=== PATIENT | male | born 1975 | race Caucasian/White ===

== ENCOUNTER 2017-10-03 12:08 | Emergency (ER) | payer BC ==
[2017-10-03 13:22] LABS: Bilirubin Negative (Negative); Blood, Urine Negative (Negative); Clarity Clear (Clear); Glucose, Urine (Dipstick) Negative (Negative); Leukocyte Negative (Negative); Nitrite Negative (Negative); Protein, Urine (Dipstick) Negative (Neg-Trace); Specific Gravity, Urine 1.025 (1.002-1.036); Urobilinogen 0.2 mg/dL (0.2-1.0); pH, Urine 5.5 (5.0-9.0)
--- NOTE | 2017-10-03 13:59 | ULT ---
ULTRASOUND SCROTUM TESTICLES DOPPLER DUPLEX: DATE: 10/03/2017 HISTORY: A 42-year-old male with right-sided scrotal pain. TECHNIQUE: Valenzuela-scale evaluation of intrascrotal contents. Color flow Doppler and spectral waveform analysis of the testicles. FINDINGS: Dilated, tortuous veins in the right scrotum, both superior to the testicle and inferior to the testi annelise, with significant change in flow between Valsalva and release of Valsalva. Bilateral testicles a re normal in size. There are multiple punctate calcifications within the bilateral testicular parenc hyma. No significant hydrocele. Blood flow is demonstrated in both testicles by Doppler. There is a smaller varicocele at the left groin. IMPRESSION: 1. Moderate to large right scrotal varicocele. 2. Small left varicocele. 3. 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 4. No evidence of testicular neoplasm or torsion. MIKE Castro POS: [facility]
== END 2017-10-03 14:42 | disposition home or self-care (01) ==
LOC: SCSER 12:08
DX: I86.1 Scrotal varices (principal); F17.210 Nicotine dependence, cigarettes, uncomplicated
CPT/HCPCS: 76870; 81003; 93976

== ENCOUNTER 2018-11-30 20:52 | Emergency (ER) | payer BC ==
[2018-11-30] MEDS ORDERED: HYDROcodone/Acetaminophen 5/325 mg Tablet ONE (22:10)
--- NOTE | 2018-12-01 09:33 | RAD ---
TWO VIEWS CHEST: DATE: 11/30/2018. COMPARISON: None. HISTORY: Pain. FINDINGS: Lungs are clear. Heart and mediastinal contours are unremarkable. IMPRESSION: No acute findings. POS: [facility]
== END 2018-11-30 22:14 | disposition home or self-care (01) ==
LOC: SCSER 20:52
DX: M54.6 Pain in thoracic spine (principal); F17.210 Nicotine dependence, cigarettes, uncomplicated
CPT/HCPCS: 71046

== ENCOUNTER 2019-03-21 19:30 | Outpatient (CLI) | payer BC | END 2019-03-21 19:31 | disposition home or self-care (01) | LOC: SLEEPLAB 19:30 | PROVIDERS: ATTEND Internal Medicine | DX: G47.33 Obstructive sleep apnea (adult) (pediatric) (principal); G47.10 Hypersomnia, unspecified; R53.83 Other fatigue; R51 Headache; R09.89 Other specified symptoms and signs involving the circulatory and respiratory systems; K21.9 Gastro-esophageal reflux disease without esophagitis; R06.89 Other abnormalities of breathing | CPT/HCPCS: 95811 ==